=== PATIENT | female | born 1995 | race Hispanic/Latino ===

== ENCOUNTER 2021-04-17 12:39 | Emergency (ER) | payer SELFPAY ==
[2021-04-17 15:37] VITALS: BP 102/47
--- NOTE | 2021-04-17 16:01 | Emergency Department Report ---
ED Female HPI - General Chief complaint: Vaginal Bleeding Stated complaint: EAR ACHE Time Seen by Provider: 04/17/21 15:40 Source: patient Mode of arrival: Ambulatory Limitations: No Limitations - History of Present Illness Initial comments: The patient was evaluated in the emergency department for symptoms described in the history of present illness. He/she was evaluated in the context of the global COVID-19 pandemic, which necessitated consideration that the patient might be at risk for infection with the virus that causes COVID-19. [facility] protocols and algorithms that pertain to the evaluation of patients at risk for COVID-19 are in a state of rapid change based on information released by regulatory bodies including the CDC and federal and state organizations. These policies and algorithms were followed during the patient's care in the emergency department. Please note that these policies, procedures and recommendations changed on a rapid basis. 26-year-old female presents to the emergency room complaining of vaginal itching spotting after she had her period. Headache body aches nasal congestion runny nose and frontal headache. She is partially vaccinated for Covid. She complains of pelvic pain. She is not concerned for any STDs. She admits that she does have abnormal vaginal discharge. Denies any fever chills. MD Complaint: pelvic pain Onset/Timin -: days(s) Location: suprapubic Severity: mild Quality: sharp Consistency: intermittent Improves with: none Worsens with: none Last Menstrual Period: 04/06/21 EDC: 01/11/22 Associated Symptoms: vaginal discharge. denies: abdominal pain, nausea/v omiting, fever/chills, dysuria, hematuria - Related Data Previous Rx's Medication Instructions Recorded Last Taken Type Amoxicillin/Potassium Clav 1 each PO Q12H 7 Days #14 tablet 04/17/21 Unknown Rx [Augmentin 875-125 Tablet] Allergies Allergy/AdvReac Type Severity Reaction Status Date / Time No Known Allergies Allergy Unverified 04/17/21 15:34 ED Review of Systems ROS: Stated complaint: EAR ACHE Other details as noted in HPI Comment: All other systems reviewed and negative ED Past Medical Hx - Past Medical History Previous Medical History?: No - Surgical History Past Surgical History?: No - Medications Home Medications: Home Medications Medication Instructions Recorded Confirmed Last Taken Type Amoxicillin/Potassium Clav 1 each PO Q12H 7 Days #14 tablet 04/17/21 Unknown Rx [Augmentin 875-125 Tablet] ED Physical Exam - General Limitations: No Limitations General appearance: alert, in no apparent distress - Head Head exam: Present: atraumatic, normocephalic - Eye Eye exam: Present: normal appearance - ENT ENT exam: Present: mucous membranes moist - Neck Neck exam: Present: normal inspection, full ROM - Respiratory Respiratory exam: Present: normal lung sounds bilaterally. Absent: respiratory distress, accessory muscle use - Cardiovascular Cardiovascular Exam: Present: regular rate, normal rhythm. Absent: systolic murmur, diastolic murmur, rubs, gallop - GI/Abdominal GI/Abdominal exam: Present: soft, tenderness (Suprapubic), normal bowel sounds. Absent: distended - Extremities Exam Extremities exam: Present: normal inspection, full ROM - Back Exam Back exam: Present: normal inspection, full ROM - Neurological Exam Neurological exam: Present: alert, oriented X3, normal gait - Psychiatric Psychiatric exam: Present: normal affect, normal mood - Skin Skin exam: Present: warm, dry, intact, normal color. Absent: rash ED Course Vital Signs 04/17/21 15:35 Temperature 97.7 F Pulse Rate 74 Respiratory 16 Rate Blood Pressure 102/47 [Left] O2 Sat by Pulse 100 Oximetry ED Medical Decision Making - Lab Data Lab Results 04/17/21 Range/Units Unknown Urine Color Glory (Yellow) Urine Turbidity Cloudy (Clear) Urine pH 5.0 (5.0-7.0) Ur Specific [place] 1.025 (1.003-1.030) Urine Protein 30 mg/dl (Negative) mg/dL Urine Glucose (UA) Neg (Negative) mg/dL Urine Ketones 20 (Negative) mg/dL Urine Blood Lg (Negative) Urine Nitrite Neg (Negative) Ur Reducing Substances Not Reportable Urine Bilirubin Neg (Negative) Urine Ictotest Not Reportable Urine Urobilinogen 2.0 (<2.0) mg/dL Ur Leukocyte Esterase Sm (Negative) Urine WBC (Auto) 18.0 H (0.0-6.0) /HPF Urine RBC (Auto) 15.0 (0.0-6.0) /HPF U Epithel Cells (Auto) 12.0 (0-13.0) /HPF Urine Bacteria (Auto) 1+ (Negative) /HPF Urine Mucus 3+ /HPF Urine Yeast (Budding) Few /HPF Urine HCG, Qual Negative (Negative) - Medical Decision Making 26-year-old female presents to the emergency room complaining of vaginal itching spotting after she had her period. Headache body aches nasal congestion runny nose and frontal headache. She is partially vaccinated for Covid. She complains of pelvic pain. She is not concerned for any STDs. She admits that she does have abnormal vaginal discharge. Denies any fever chills. Urinalysis been sent out. Patient has stable vital signs examined is only positive for suprapubic tenderness. Patient is nontoxic no acute distress. Patient will be treated for urinary tract infection with Augmentin. Augmentin also covers for otitis media and upper respiratory infections. Patient is to follow-up with a primary care provider I have listed [facility]. Patient is to take Tylenol ibuprofen as needed for pain and increase her water intake. Critical care attestation.: If time is entered above; I have spent that time in minutes in the direct care of this critically ill patient, excluding procedure time. ED Disposition Clinical Impression: UTI (urinary tract infection), Left ear pain Disposition: HOME / SELF CARE / HOMELESS Is pt being admited?: No Does the pt Need Aspirin: No Condition: Stable Instructions: Urinary Tract Infection, Adult, [id number], Earache, Adult Additional Instructions: Urine shows that you have a urinary tract infection. I am placing you on Augmentin which covers urinary tract infections ear infections upper respiratory infections. You need to take your Tylenol ibuprofen as needed. Increase your water intake and follow-up with a primary care provider. Prescriptions: Amoxicillin/Potassium Clav [Augmentin 875-125 Tablet] 1 each PO Q12H 7 Days #14 tablet Referrals: PRIMARY CAREM[facility] [Primary Care Provider] - 3-5 Days [facility] [Provider Group] - 3-5 Days Forms: Work/School Release Form(ED) Time of Disposition: 18:19
[2021-04-17 16:39] LABS: HCG Qualitative,Urine Negative (Negative)
[2021-04-17 18:02] LABS: Bacteria,Urine 1+ /HPF (Negative); Bilirubin,Urine NEG (Negative); Blood,Urine LG (Negative); Color,Urine Amber (Yellow); Mucus,Urine 3+ /HPF
== END 2021-04-17 19:35 | disposition home or self-care (01) ==
LOC: ED 12:39
DX: N39.0 Urinary tract infection, site not specified (principal); H92.02 Otalgia, left ear
CPT/HCPCS: 81001; 81025; 87086; 99283